=== PATIENT | male | born 1985 | race Caucasian/White ===

== ENCOUNTER 2017-12-16 15:35 | Emergency (ER) | payer SELFPAY ==
[~2017-12-16] VITALS: Ht 182.9 cm; Wt 99.0 kg
[2017-12-16] MEDS ORDERED: KETOROLAC 60MG/2ML VIAL IM ONE (19:30)
[2017-12-16] MEDS ORDERED: METHOCARBAMOL 500MG TABLET PO ONE (19:30)
[2017-12-16 19:59] LABS: BASOPHILS % 0.3 % (0.0-2.0); EOSINOPHILS % 1.2 % (0.0-5.0); HEMATOCRIT. 45.1 % (42.0-52.0); HEMOGLOBIN. 15.1 g/dL (14.0-18.0); LYMPHOCYTES % 35.2 % (20.0-50.0); MEAN CORPUSCULAR HEMOGLOBIN 28.4 pg (28.0-32.0); MEAN CORPUSCULAR VOLUME 84.8 fL (80.0-94.0); MEAN PLATELET VOLUME 8.3 fl (7.4-10.4); MONOCYTES % 4.6 % (2.0-8.0); NEUTROPHILS % 58.7 % (40.0-76.0); PLATELET 293 x1000/uL (130-400); RED BLOOD CELL COUNT 5.32 mill/uL (4.7-6.1); RED CELL DISTRIBUTION WIDTH 12.9 % (11.6-14.6)
[2017-12-16 23:00] VITALS: BP 108/73
== END 2017-12-16 23:10 | disposition home or self-care (01) ==
LOC: ER 15:49
DX: M54.5 Low back pain (principal); G89.29 Other chronic pain; V53.5XXA Driver of pick-up truck or van injured in collision with car, pick-up truck or van in traffic accident, initial encounter; Y93.89 Activity, other specified; Y92.488 Other paved roadways as the place of occurrence of the external cause
CPT/HCPCS: 36415; 71045; 72070; 72100; 73590; 85025; 96372; 99285; J1885; Z7610